=== PATIENT | female | born 1985 ===

== ENCOUNTER 2025-03-14 13:44 | Outpatient (CLI) | payer MEDICAID | END 2025-03-14 17:00 | disposition home or self-care (01) | LOC: Rad HDHVI 13:44 | PROVIDERS: ATTEND Internal Medicine Cardiovascular Disease | DX: R42 Dizziness and giddiness (principal) | CPT/HCPCS: 93306 ==

== ENCOUNTER 2025-04-16 09:34 | Outpatient (CLI) | payer MEDICAID ==
[~2025-04-16] VITALS: Ht 180.3 cm; Wt 90.3 kg
--- NOTE | 2025-04-22 14:24 | DVHSR ---
APPROVED REPORT Exam: Nuclear Stress Test Indication: Cardiac clearance Ht: 5 ft 11 in Wt: 199 lbs BSA: 2.10 m2 HR: 64 bpm BP: 104/58 mmHg BMI: 27.75 Rhythm: NSR Medical History Medications: Vit B12, Vit D Cardiac Risk Factors: Family Hx of CAD Stress Test Details Stress Test: Exercise stress testing was performed using a Navjot protocol. HR Resting HR: 64 bpm Max Heart Rate (APMHR): 182.195070 bpm Max HR Achieved: 164 bpm Target HR (85% APMHR): 154.072989 bpm % of APMHR: 90.11 Recovery HR: 90 bpm HR response to stress: Normal HR response to stress BP Resting BP: 104/58 mmHg Max BP: 135/77 mmHg Recovery BP: 119/77 mmHg BP response to stress: Normal blood pressure response to stress. ECG Resting ECG: Sinus Rhythm Stress ECG: Sinus Tachycardia Arrhythmia: PACs Recovery ECG: Sinus Rhythm Clinical Reason for Termination: Leg fatigue Stress Symptoms: leg fatigue Exercise duration: 7 min 07 sec Exercise capacity: 10.10 METs Stress ECG Conclusion NON ISCHEMIC CLINICAL RESPONSE NON ISCHEMIC ECG RESPONSE NON ISCHEMIC STRESS CARDIOLITE PERFUSION SCAN EF >55% NM EXAM: Myocardial Perfusion REST/STRESS Imaging Protocol: Rest Tc-99m/Stress Tc-99m 1 day Resting Data Rest SPECT myocardial perfusion imaging was performed in supine position 30 minutes following the intravenous injection of 10.90 mCi of Tc-99m Sestamibi. Time of rest injection: 1017 Date: 04/16/2025 Time of rest imagin Date: 04/16/2025 Administration Route: IV Administration Site: Left AC Exercise Stress At peak stress, the patient was injected intravenously with 30.1 mCi of Tc-99m Sestamibi. Time of stress injection: 1132 Date: 04/16/2025 Time of stress imagin Date: 04/16/2025 Administration Route: IV Administration Site: Left AC Heart Rate at time of stress injection: 162 bpm. Patient continued to exercise for 1 minute(s). Gated Stress SPECT was performed 15 minutes after stress injection. The images were gated to evaluate regional wall motion and calculate left ventricular ejection fraction. Comments Cardiolite injection at 6 minutes, 20 seconds into test. Nuclear Conclusion NON ISCHEMIC CLINICAL RESPONSE NON ISCHEMIC ECG RESPONSE NON ISCHEMIC STRESS CARDIOLITE PERFUSION SCAN EF >55%
== END 2025-04-16 17:00 | disposition home or self-care (01) ==
LOC: Rad HDHVI 09:34
PROVIDERS: ATTEND Internal Medicine Cardiovascular Disease
DX: Z01.810 Encounter for preprocedural cardiovascular examination (principal); Z13.6 Encounter for screening for cardiovascular disorders; I49.1 Atrial premature depolarization; R00.0 Tachycardia, unspecified; R42 Dizziness and giddiness; Z82.49 Family history of ischemic heart disease and other diseases of the circulatory system
CPT/HCPCS: 78452; 93017; A9500; 96374